=== PATIENT | female | born 1950 | race Caucasian/White ===

== ENCOUNTER 2017-03-25 05:02 | Emergency (ER) | payer MEDICARE, OTHER ==
[~2017-03-25] VITALS: Ht 165.1 cm; Wt 90.0 kg
[~2017-03-25 05:02] MED LIST: AMOX500C6; CLAR500T39; ESOM40CA; TAMO10TA
[2017-03-25 05:10] VITALS: Ht 165.1 cm; Wt 90.0 kg
[2017-03-25] MEDS ORDERED: SOD CHLORIDE 0.9% 500 ML IV STA (06:13)
--- NOTE | 2017-03-25 06:28 | ERA ---
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 Patient suddenly woke up her son because of these symptoms that have since resolved but now include facial paresthesia and dry mouth. She denies central chest pain, fever, chills, cough, pleuritic pain or LE swelling. No headache. No syncope. Earlier in the day she did have an argument with her son but denies significant anxiety about the situation and states no history of anxiety or panic attacks. ROS All systems reviewed and are negative except as per history of present illness. Medications Home Meds Reported Medications Anastrozole* (Arimidex*) 1 Mg Tablet, 1 MG PO DAILY, #30 TAB 03/25/17 Discontinued Reported Medications Tamoxifen Citrate (Nolvadex) 10 Mg Tablet 02/27/11 Clarithromycin* (Biaxin*) 500 Mg Tablet 02/27/11 Amoxicillin* (Amoxil*) 500 Mg Capsule 02/27/11 Esomeprazole Mag Trihydrate (Nexium) 40 Mg Capsule. 02/27/11 Allergies Allergies: Coded Allergies: No Known Allergies (Verified Allergy, Mild, 03/25/17) PMhx/Soc History of Surgery: No Anesthesia Reaction: No Hx Neurological Disorder: No Hx Respiratory Disorders: No Hx Cardiac Disorders: No Hx Psychiatric Problems: No Hx Miscellaneous Medical Probl: Yes (RIGHT BREAST LUMPECTOMY) Hx Alcohol Use: No Hx Substance Use: No Hx Tobacco Use: No Smoking Status: Never smoker FmHx Family History: diabetes Physical Exam Vitals Vital Signs Date Time Temp Pulse Resp B/P Pulse Ox O2 Delivery O2 Flow Rate FiO2 03/25/17 10:13 80 16 110/61 98 03/25/17 06:54 Nasal Cannula 2 03/25/17 05:10 98.3 80 18 138/68 99 Physical Exam General: Well developed, well nourished, no acute distress Head: Normocephalic, atraumatic. Eyes: Pupils equally reactive, EOM intact ENT: Moist mucous membranes Neck: Supple, no lymphadenopathy Respiratory: Lungs clear bilaterally, no distress Cardiovascular: RRR, systolic ejection murmur approximately 3 out of 6 Abdominal: Soft, non-tender, non-distended, no peritoneal signs : Deferred MSK: No edema, no unilateral swelling, 5/5 strength, no pulse deficits Neurologic: Alert and oriented, moving all extremities, normal speech, no focal weakness, no cerebellar signs Skin: No rash Psych: Normal mood Result Diagram: 03/25/17 0640 03/25/17 0640 Results 24 hrs Laboratory Tests Test 03/25/17 06:40 White Blood Count 5.510^3/ul Red Blood Count 4.3710^6/ul Hemoglobin 11.4g/dl Hematocrit 37.3% Mean Corpuscular Volume 85.4fl Mean Corpuscular Hemoglobin 26.1pg Mean Corpuscular Hemoglobin Concent 30.6g/dl Red Cell Distribution Width 13.8% Platelet Count 76429^3/UL Mean Platelet Volume 9.7fl Neutrophils % 65.8% Lymphocytes % 27.3% Monocytes % 5.5% Eosinophils % 0.6% Basophils % 0.2% Nucleated Red Blood Cells % 0.0/100WBC Neutrophils # 3.610^3/ul Lymphocytes # 1.510^3/ul Monocytes # 0.310^3/ul Eosinophils # 0.010^3/ul Basophils # 0.010^3/ul Nucleated Red Blood Cells # 0.010^3/ul Prothrombin Time 13.8Sec Prothrombin Time Ratio 1.1 INR International Normalized Ratio 1.06 Activated Partial Thromboplast Time 33.1Sec Sodium Level 146mmol/L Potassium Level 3.9mmol/L Chloride Level 106mmol/L Carbon Dioxide Level 29mmol/L Anion Gap 15 Blood Urea Nitrogen 11mg/dl Creatinine 0.51mg/dl Glucose Level 98mg/dl Calcium Level 9.0mg/dl Troponin I < 0.012ng/ml Current Medications Medications (Trade) Dose Ordered Sig/Neftali Route PRN Reason Start Time Stop Time Status Last Admin Dose Admin Sodium Chloride (NS) 500 ml @ 500 mls/hr Q1H STAT IV 03/25/17 06:13 03/25/17 07:12 DC 03/25/17 06:53 IV Flush 10 ml 10 ml STK-MED ONCE .ROUTE 03/25/17 09:28 03/25/17 09:29 DC 03/25/17 09:52 Sodium Chloride (NS) 100 ml @ ud STK-MED ONCE .ROUTE 03/25/17 09:28 03/25/17 09:29 DC 03/25/17 10:01 Iodixanol (Visipaque Locm) 100 ml STK-MED ONCE .ROUTE 03/25/17 09:28 03/25/17 09:29 DC 03/25/17 10:01 Iodixanol (Visipaque Locm) 50 ml STK-MED ONCE .ROUTE 03/25/17 09:28 03/25/17 09:29 DC 03/25/17 10:01 Ondansetron HCl (Zofran Inj) 4 mg ER BRIDGE PRN IV NAUSEA AND/OR VOMITING 03/25/17 11:00 03/26/17 10:59 Acetaminophen (Tylenol Tab) 650 mg ER BRIDGE PRN PO MILD PAIN/FEVER 03/25/17 11:00 03/26/17 10:59 Procedures/MDM EKG, MONITORS, & DIAGNOSTIC IMAGING: EKG: I reviewed and interpreted a 12-lead EKG. Rhythm: Normal sinus rhythm Ectopy: None Intervals: No abnormalities ST segments: No elevations or depressions T waves: No contiguous inversions Chest x-ray: I reviewed and interpreted a 1 view of the chest Mediastinum: No enlargement Cardiac silhouette: No cardiomegaly Airspace: Clear lung harris bilaterally without evidence of pneumothorax Bones: No evidence of fracture CT angiogram chest: IMPRESSION: No evidence of thoracic aortic aneurysm or dissection. Bronchial wall thickening with scattered clusters of ground-glass tree in bud opacities throughout the right lower lobe suggesting sequelae of bronchiolitis. Scattered bibasilar subsegmental atelectasis. RPTAT: [facility] LAB INTERPRETATION: Negative troponin MEDICAL DECISION MAKING: The patient presents with a sudden onset of left shoulder pain radiating to her back now alleviated with paresthesias to her face. Differential is broad and does include anxiety and panic attack given social situation. However, given the patient's age, the fact that she has a new murmur, her history of borderline diabetes this does raise the concern for possible cardiac etiology. Also consider dissection given the location of the pain and the pain to the middle of her back. No signs or symptoms concerning for pulmonary embolism. For these reasons I believe the patient would benefit from laboratory testing, diagnostic imaging including CT angiogram of the chest. The patient will benefit from inpatient hospitalization. ER COURSE: The patient continues to be well-appearing and is asymptomatic currently. Aspirin provided. I strongly recommended hospitalization given the concern for possible cardiac etiology. I even called report to Dr. French. However the patient now wants to leave AGAINST MEDICAL ADVICE. I discussed the risks, benefits, alternatives. The patient has capacity. She is able to verbalize the understanding of risk of cardiac arrest and . The patient has signed a document will be leaving AGAINST MEDICAL ADVICE. Dr. French notified. I kept the patient and/or family informed of laboratory and diagnostic imaging results throughout the emergency room course. DISPOSITION PLAN: Telemetry admission for rule out of acute coronary syndrome CONSULTATION: Accepting care team and consultations: I discussed the current laboratory data, diagnostic imaging and emergency care provided. Admitting team: Dr. French Admitting team indication: Insurance directed Departure Diagnosis: Primary Impression: Atypical chest pain Condition: Stable SERAFIN ROBERTO MD March 25, 2017 06:28
[2017-03-25] MEDS ORDERED: ANAS1TAB PO (06:59)
[2017-03-25 07:00] LABS: ADD SCAN DIFF NO
[2017-03-25 07:03] LABS: BASOPHILS % 0.2 % (0.0-2.0); EOSINOPHILS % 0.6 % (0.0-7.0); HEMATOCRIT 37.3 % (37.0-47.0); HEMOGLOBIN 11.4 g/dl (12.0-16.0); LYMPHOCYTES # 1.5 10^3/ul (0.8-2.9); LYMPHOCYTES % 27.3 % (15.0-51.0); MEAN CORPUSCULAR HEMOGLOBIN 26.1 pg (29.0-33.0); MEAN CORPUSCULAR HGB CONC 30.6 g/dl (32.0-37.0); MEAN CORPUSCULAR VOLUME 85.4 fl (82.0-101.0); MEAN PLATELET VOLUME 9.7 fl (7.4-10.4); MONOCYTE # 0.3 10^3/ul (0.3-0.9); MONOCYTES % 5.5 % (0.0-11.0); NEUTROPHIL # 3.6 10^3/ul (1.6-7.5); NEUTROPHILS % 65.8 % (39.0-77.0); PLATELET COUNT 235 10^3/UL (140-415); RED BLOOD COUNT 4.37 10^6/ul (4.20-5.40); RED CELL DISTRIBUTION WIDTH 13.8 % (11.5-14.5); WHITE BLOOD COUNT 5.5 10^3/ul (4.8-10.8)
[2017-03-25 07:18] LABS: CHLORIDE 106 mmol/L (97-110); POTASSIUM 3.9 mmol/L (3.5-5.1); SODIUM 146 mmol/L (135-144)
[2017-03-25 07:21] LABS: ANION GAP 15 (8-16); BLOOD UREA NITROGEN 11 mg/dl (7-20); CARBON DIOXIDE 29 mmol/L (21-31); CREATININE 0.51 mg/dl (0.44-1.00); GLUCOSE 98 mg/dl (70-220)
[2017-03-25 07:25] LABS: INR 1.06; PARTIAL THROMBOPLASTIN TIME 33.1 Sec (25.0-35.0); PROTIME 13.8 Sec (12.2-14.2); PT RATIO 1.1
--- NOTE | 2017-03-25 07:48 | RADRPT ---
PROCEDURE: XR Chest. CLINICAL INDICATION: Chest pain TECHNIQUE: Single frontal chest x-ray. COMPARISON: None. FINDINGS: No acute infiltrate, pleural effusion or pneumothorax is identified. Cardiomediastinal silhouette i s within normal limits. Aortic atherosclerotic calcification is noted. The osseous structures are remarkable for degenerative spondylosis of the spine. IMPRESSION: 1. No evidence of acute cardiopulmonary process. 2. Aortic atherosclerosis. RPTAT: EE .Griffin Zaragoza MD, MD Date Time Electronically viewed and signed by .Griffin Zaragoza MD, on 03/25/2017 07:47 .R/
[2017-03-25 07:57] LABS: TROPONIN-I < 0.012 ng/ml (0.00-0.12)
[2017-03-25] MEDS ORDERED: SOD CHLORIDE 0.9% 100 ML ONE (09:28)
[2017-03-25] MEDS ORDERED: IODIXANOL LOCM 100 ML BTL ONE (09:28)
[2017-03-25] MEDS ORDERED: IODIXANOL LOCM 50 ML BTL ONE (09:28)
--- NOTE | 2017-03-25 10:01 | RADRPT ---
PROCEDURE: CTA Chest. CLINICAL INDICATION: Pain. Evaluate for dissection. TECHNIQUE: Multiple contiguous axial CT images of the chest were obtained following the administra tion of 115 cc of Visipaque 320 intravenous contrast. Coronal, sagittal and 3-D reformations were also obtained. CTDIvol(mGy): 70.42, 16.78; Total Exam DLP (mGy-cm): 663.63. One or more of the following dose reduction techniques were utilized: - Automated exposure control. - Adjustment of the mA and/or kV according to patient size. - Use of iterative reconstruction technique. COMPARISON: Chest x-ray 03/25/2017. FINDINGS: Limited imaging of the lower neck is unremarkable. The heart is not enlarged. There is no pericardial effusion. There is no mediastinal, hilar or axi llary lymphadenopathy. The pulmonary arteries are not enlarged. The thoracic aorta is normal in ca liber with atherosclerotic calcification. The aortic root measures 3.3 cm. The aortic arch measure s 2.6 cm. The ascending aorta measures 3.8 cm. The descending aorta measures 2.6 cm. There is no i ntimal flap to suggest the presence of aortic dissection. There is no periaortic hematoma. There is no pulmonary consolidation, pleural effusion or concerning pulmonary nodule. Mild bronchia l wall thickening and dilatation of the right lower lobe airways is observed. Scattered clusters of ground-glass tree in bud opacities are seen throughout the right lower lobe and suggestive of bronc hiolitis. Scattered basilar atelectatic changes are seen bilaterally. Limited imaging of the upper abdomen demonstrates evidence of cholecystectomy. Degenerative changes of the thoracic spine are observed. Subcutaneous soft tissues are unremarkable . IMPRESSION: No evidence of thoracic aortic aneurysm or dissection. Bronchial wall thickening with scattered clusters of ground-glass tree in bud opacities throughout t he right lower lobe suggesting sequelae of bronchiolitis. Scattered bibasilar subsegmental atelectasis. RPTAT: [facility] .Miley Pierce MD, Date Time Electronically viewed and signed by .Miley Pierce MD, on 03/25/2017 10:01 .T/
[2017-03-25 10:13] VITALS: BP 110/61; PULSE 80; RESP 16
[2017-03-25] MEDS ORDERED: ONDANSETRON 4 MG INJ IV PRN (11:00)
[2017-03-25] MEDS ORDERED: ACETAMINOPHEN 325 MG TAB PO PRN (11:00)
[2017-03-25] MEDS ORDERED: ASPIRIN 81 MG TAB PO ONE (11:30)
== END 2017-03-25 11:19 | disposition left against medical advice (07) ==
LOC: FTE 05:02 → E/R 11:19
DX: R07.89 Other chest pain (principal)
CPT/HCPCS: 36415; 71010; 71275; 80048; 84484; 85025; 85610; 85730; 93005; 96360; 96361; 99285; J7040; Q9967